=== PATIENT | male | born 1990 | race Caucasian/White ===

== ENCOUNTER 2018-09-29 22:24 | Emergency (ER) | payer BC ==
[~2018-09-29] VITALS: Ht 180.3 cm; Wt 88.6 kg
[~2018-09-29 22:24] MED LIST: IBUP200T2 PO; NORCOBULK PO
[2018-09-30 01:22] VITALS: BP 103/61
--- NOTE | 2018-09-30 13:32 | ECGEPIP ---
Stationary ECG Study [facility] - ED Test Date: 2018-09-29 Pat Name: ION STOKES Department: Room: - Gender: M [employer]aning [employer] Member: ct : 1990 Requested By: WILMAR Delgado PA-C Order Number: [id number] Reading MD: Juan Carlos Foster Measurements Intervals [place] Rate: 72 P: 60 [place]: 164 QRS: 41 QRSD: 88 T: 30 QT: 380 QTc: 416 Interpretive Statements SINUS RHYTHM WITH SINUS ARRHYTHMIA POSSIBLE LEFT ATRIAL ENLARGEMENT NONSPECIFIC T-WAVE ABNORMALITY BENIGN EARLY REPOLARIZATION NO PRIORS FOR COMPARISON Electronically Signed On 09-30-2018 13:32:40 EST by Juan Carlos Foster
== END 2018-09-30 01:31 | disposition home or self-care (01) ==
LOC: M ED 22:24
DX: R07.89 Other chest pain (principal); F41.9 Anxiety disorder, unspecified; F43.0 Acute stress reaction; Z87.891 Personal history of nicotine dependence; Z82.49 Family history of ischemic heart disease and other diseases of the circulatory system

== ENCOUNTER → 2021-09-25 | Outpatient (REF) | payer OTHER ==
[2021-09-25 20:29] LABS: RSV AMPLIFICATION NEGATIVE (NEGATIVE)
== END ==
LOC: M LAB REF 16:54
PROVIDERS: ATTEND Nurse Practitioner Family
DX: J06.9 Acute upper respiratory infection, unspecified (principal); Z20.822 Contact with and (suspected) exposure to COVID-19

== ENCOUNTER → 2024-12-31 | Outpatient (REF) | payer OTHER | LOC: M LAB REF 14:19 | PROVIDERS: ATTEND Physician Assistant | DX: B34.9 Viral infection, unspecified (principal); J02.9 Acute pharyngitis, unspecified ==